=== PATIENT | male | born 1975 ===

== ENCOUNTER → 2018-05-30 15:41 | Outpatient (REF) | payer OTHER, SELFPAY ==
[2018-06-01 19:35] LABS: Estradiol 15 pg/mL (< 40)
[2018-06-03 17:38] LABS: Testosterone Free 488 ng/dL (250-1100); Testosterone Total 45.7 pg/mL (35.0-155.0)
== END ==
LOC: LAB 15:41
PROVIDERS: Visit Provider Naturopath
DX: R63.5 Abnormal weight gain (principal); Z13.89 Encounter for screening for other disorder; G47.33 Obstructive sleep apnea (adult) (pediatric); R53.83 Other fatigue; E29.1 Testicular hypofunction
CPT/HCPCS: 36415; 82670; 84402; 84403

== ENCOUNTER → 2018-06-08 22:13 | Outpatient (REF) | payer OTHER, SELFPAY ==
[2018-06-08 22:16] LABS: Bacteria Urine None Seen; RBC Urine None Seen (0-5/HPF); WBC Urine None Seen (0-5/HPF)
[2018-06-09 00:07] LABS: Add Manual Diff / Slide Review NO; Basophils Absolute Auto 0 /uL (0-100); Basophils Percent Auto 0.5 % (0-2); Eosinophils Absolute Auto 100 /uL (0-450); Eosinophils Percent Auto 1.1 % (2-4); Hematocrit 43.1 % (41-53); Hemoglobin 14.4 g/dL (13.5-17.5); Lymphocytes Absolute Auto 1000 /uL (1100-4500); Lymphocytes Percent Auto 21.3 % (25-40); Mean Corpuscular HGB Conc 33.5 % (30-36); Mean Corpuscular Hemoglobin 28.9 PG (26-34); Mean Corpuscular Volume 86.2 fL (80-100); Monocytes Absolute Auto 500 /uL (0-900); Monocytes Percent Auto 10.9 % (3-14); Neutrophils Absolute Auto 3200 /uL (1500-7000); Neutrophils Percent Auto 66.2 % (50-75); Platelet Count 229 X10^3/uL (150-400); Red Cell Distribution Width 13.7 % (11.6-14.8); White Blood Cell Count 4.8 X10^3/uL (4.5-11.0)
[2018-06-09 01:47] LABS: Appearance Urine UA CLEAR; Bilirubin Urine UA NEGATIVE (NEGATIVE); Color Urine UA YELLOW; Glucose Urine UA NEGATIVE (Negative); Ketones Urine UA 3+ (NEGATIVE); Leukocyte Esterase Urine UA NEGATIVE (NEGATIVE); Nitrite Urine UA NEGATIVE (Negative); Occult Blood Urine UA NEGATIVE (Negative); Protein Urine UA NEGATIVE (Negative); Urobilinogen Urine UA 0.2 E.U./dL (0.2)
[2018-06-09 03:07] LABS: Alanine Aminotransferase 43 IU/L (21-72); Albumin 4.7 g/dL (3.5-5.0); Albumin Globulin Ratio 1.5 (1.0-2.8); Alkaline Phosphatase 61 U/L (38-126); Aspartate Aminotransferase 31 IU/L (17-59); BUN Creatinine Ratio 16.7 (6-22); Bilirubin Total 0.5 mg/dL (0.2-1.3); Blood Urea Nitrogen 15 mg/dL (9-20); Calcium 9.6 mg/dL (8.4-10.2); Carbon Dioxide 26 mmol/L (22-32); Chloride 98 mmol/L (98-107); Cholesterol 267 mg/dL (140-199); Estimated Glomerular Filt Rate > 60.0 mL/min (>60); Globulin 3.1 g/dL (1.7-4.1); Glucose 75 mg/dL (70-100); HDL Cholesterol 49 mg/dL (40-60); HEMOLYSIS < 15 (0-50); LDL Cholesterol Calculated 188 mg/dL (<100); Potassium 4.4 mmol/L (3.4-5.1); Sodium 139 mmol/L (137-145); Total Protein 7.8 g/dL (6.3-8.2); Triglycerides 151 mg/dL (35-150)
[2018-06-09 03:35] LABS: Ferritin 41.5 ng/mL (17.9-464)
[2018-06-09 04:25] LABS: Culture Indicated Urine Cult Not Indicated; Urine Comments Microscopic Normal
[2018-06-09 04:33] LABS: Rubella Antibody IgG 15.1 IU/mL (>15)
[2018-06-09 08:02] LABS: TSH w/ Reflex to FT4 1.84 uIU/mL (0.47-4.68)
[2018-06-13 14:46] LABS: Mumps Virus IgG Antibody < 9.00 AU/mL (< 9.00)
[2018-06-13 15:21] LABS: PSA Total 0.45 ng/mL (< 4.01)
== END ==
LOC: LAB 22:13
PROVIDERS: Visit Provider Naturopath
DX: Z00.01 Encounter for general adult medical examination with abnormal findings (principal); K64.8 Other hemorrhoids; Z11.59 Encounter for screening for other viral diseases
CPT/HCPCS: 36415; 80053; 80061; 81001; 82728; 84153; 84154; 84443; 85025; 86735; 86762; 86765